=== PATIENT | female | born 1950 | race Native Hawaiian/Other Pacific Islander ===

== ENCOUNTER 2017-12-28 11:29 | Outpatient (CLI) | payer OTHER, MEDICARE | END 2017-12-28 23:32 | disposition home or self-care (01) | LOC: RAD 11:29 | DX: M54.12 Radiculopathy, cervical region (principal) ==

== ENCOUNTER 2019-04-23 14:50 | Observation (INO) | payer OTHER, MEDICARE ==
[~2019-04-23] VITALS: Ht 170.2 cm; Wt 94.4 kg
[2019-04-23 15:24] VITALS: BP 111/52; TEMP 98.5; Ht 170.2 cm; Wt 94.4 kg
[2019-04-23 16:00] VITALS: BP 111/52; TEMP 98.5
[2019-04-23 19:18] LABS: PLATELET COUNT 224 K/uL (152-353)
[2019-04-23 19:34] LABS: POTASSIUM 3.6 mmol/L (3.6-5.2)
[2019-04-23] MEDS ORDERED: LISI20TA11 PO (19:53)
[2019-04-23] MEDS ORDERED: LIPITOR40 MG PO (19:55)
[2019-04-23] MEDS ORDERED: ASA LOW DOSE81 MG PO (19:56)
[2019-04-23] MEDS ORDERED: LEVO0.1519 PO (19:59)
[2019-04-23 20:00] VITALS: BP 111/51; TEMP 98.2
[2019-04-23 23:51] VITALS: BP 119/63; TEMP 97.8
[2019-04-24 03:56] VITALS: BP 132/59; TEMP 97.9
[2019-04-24 08:00] VITALS: BP 117/49; TEMP 98.1
== END 2019-04-24 11:25 | disposition home or self-care (01) ==
LOC: MED/SURG 14:50
PROVIDERS: ADMIT Internal Medicine
DX: I95.1 Orthostatic hypotension (principal); R55 Syncope and collapse; R42 Dizziness and giddiness; E03.8 Other specified hypothyroidism; N39.0 Urinary tract infection, site not specified; I65.29 Occlusion and stenosis of unspecified carotid artery; I69.354 Hemiplegia and hemiparesis following cerebral infarction affecting left non-dominant side
CPT/HCPCS: 36415; 80053; 81000; 82533; 84443; 85027; 87088; 93306; 96365; 96366; 96372; 99220; G0378; G0379; J1650

== ENCOUNTER 2019-09-25 09:04 | Outpatient (CLI) | payer OTHER, MEDICARE ==
[~2019-09-25 09:04] MED LIST: ASA LOW DOSE81 MG PO; LEVO0.1519 PO; LIPITOR40 MG PO; LISI20TA11 PO
== END 2019-09-25 20:15 | disposition home or self-care (01) ==
LOC: MAMMO 09:04
DX: Z12.31 Encounter for screening mammogram for malignant neoplasm of breast (principal)

== ENCOUNTER 2020-09-28 09:36 | Outpatient (CLI) | payer OTHER | END 2020-09-28 19:29 | disposition home or self-care (01) | LOC: MAMMO 09:36 | PROVIDERS: ATTEND Nurse Practitioner Family | DX: Z12.31 Encounter for screening mammogram for malignant neoplasm of breast (principal) ==

== ENCOUNTER 2021-07-08 08:48 | Emergency (ER) | payer OTHER, MEDICARE ==
[~2021-07-08] VITALS: Ht 170.2 cm; Wt 94.3 kg
[2021-07-08 08:52] VITALS: TEMP 98.7
[2021-07-08 09:31] LABS: PLATELET COUNT 179 K/uL (152-353)
[2021-07-08 09:38] LABS: POTASSIUM 4.2 mmol/L (3.6-5.2)
[2021-07-08 10:47] VITALS: BP 154/74
== END 2021-07-08 10:47 | disposition home or self-care (01) ==
LOC: ED 08:48
PROVIDERS: Emergency Medicine
DX: R10.32 Left lower quadrant pain (principal); K59.09 Other constipation
CPT/HCPCS: 80048; 81000; 85027; 99283

== ENCOUNTER 2021-12-22 14:08 | Outpatient (CLI) | payer OTHER, MEDICARE | END 2021-12-22 18:54 | disposition home or self-care (01) | LOC: MAMMO 14:08 | PROVIDERS: ATTEND Nurse Practitioner | DX: Z12.31 Encounter for screening mammogram for malignant neoplasm of breast (principal) ==

== ENCOUNTER 2023-01-17 09:57 | Outpatient (CLI) | payer OTHER, MEDICARE | END 2023-01-17 18:55 | disposition home or self-care (01) | LOC: MAMMO 09:57 | PROVIDERS: ATTEND Nurse Practitioner | DX: Z12.31 Encounter for screening mammogram for malignant neoplasm of breast (principal) ==

== ENCOUNTER 2023-02-06 10:41 | Outpatient (CLI) | payer OTHER | END 2023-02-06 19:21 | disposition home or self-care (01) | LOC: RAD 10:41 | PROVIDERS: ATTEND Nurse Practitioner | DX: S69.81XA Other specified injuries of right wrist, hand and finger(s), initial encounter (principal); Y92.89 Other specified places as the place of occurrence of the external cause ==